=== PATIENT | male | born 1960 | race Caucasian/White ===

== ENCOUNTER 2022-12-11 09:51 | Day surgery (SDC) | payer BC ==
[2022-12-10 09:53] VITALS: BMI 28.3
[2022-12-11] MEDS ORDERED: Bupivacaine HCl 0.5%/Epinephrine 1:200,000/PF 30 ml Vial ONE (11:34)
[2022-12-11] MEDS ORDERED: CEFAZOLIN 2 GM VIAL ONE (11:40)
[2022-12-11] MEDS ORDERED: fentaNYL 50 mcg/mL 1 mL Vial ONE ×3 (12:04→13:40)
[2022-12-11] MEDS ORDERED: PROPOFOL 20 ML ONE (12:12)
[2022-12-11] MEDS ORDERED: PHENYLEPHRINE-NS 100 MCG/ML 10 ML SYRINGE ONE (12:28)
== END 2022-12-11 14:22 | disposition home or self-care (01) ==
LOC: CSHSDC 09:51
PROVIDERS: ATTEND Podiatrist Foot & Ankle Surgery
PROC: 0SSH05Z Reposition Right Tarsal Joint with External Fixation Device, Open Approach (ICD-10-PCS; principal; 2022-12-11)
DX: M20.21 Hallux rigidus, right foot (principal); E11.65 Type 2 diabetes mellitus with hyperglycemia; M10.9 Gout, unspecified; I10 Essential (primary) hypertension; E78.5 Hyperlipidemia, unspecified
CPT/HCPCS: C1776; J2704; J3010

== ENCOUNTER 2024-01-21 11:40 | Day surgery (SDC) | payer BC ==
[2024-01-19 14:09] VITALS: BMI 28.8
[2024-01-21] MEDS ORDERED: PROPOFOL 20 ML ONE (15:51)
[2024-01-21] MEDS ORDERED: Lidocaine 2% PF 5 ML VIAL ONE (15:51)
[2024-01-21] MEDS ORDERED: fentaNYL 50 mcg/mL 1 mL Vial ONE ×3 (15:51→17:51)
[2024-01-21] MEDS ORDERED: Famotidine/PF 20 mg/2ml Vial ONE (15:57)
[2024-01-21] MEDS ORDERED: CEFAZOLIN 2 GM VIAL ONE (15:57)
[2024-01-21] MEDS ORDERED: Dexamethasone 4 mg/ml Vial ONE (16:16)
[2024-01-21] MEDS ORDERED: Ketorolac Tromethamine 30 MG (1 mL) VIAL ONE (16:16)
[2024-01-21] MEDS ORDERED: Ondansetron PF 4 MG/2 ML Vial ONE (16:16)
[2024-01-21] MEDS ORDERED: Glycopyrrolate 0.2 MG/ML 5 ML SYRINGE ONE (16:52)
[2024-01-21] MEDS ORDERED: HYDROcodone/Acetaminophen 5/325 mg Tablet ONE (18:12)
== END 2024-01-21 19:00 | disposition home or self-care (01) ==
LOC: CSHSDC 11:40
PROVIDERS: ATTEND Podiatrist Foot & Ankle Surgery
PROC: 0SGM04Z Fusion of Right Metatarsal-Phalangeal Joint with Internal Fixation Device, Open Approach (ICD-10-PCS; principal; 2024-01-21)
DX: M20.21 Hallux rigidus, right foot (principal); I10 Essential (primary) hypertension; J44.9 Chronic obstructive pulmonary disease, unspecified; E11.65 Type 2 diabetes mellitus with hyperglycemia; E78.5 Hyperlipidemia, unspecified; Z87.891 Personal history of nicotine dependence
CPT/HCPCS: C1713; J1100; J1885; J2001; J2405; J2704; J3010; J3490